=== PATIENT | male | born 1995 | race Caucasian/White ===

== ENCOUNTER 2017-06-11 01:49 | Emergency (ER) | payer BC ==
[2017-06-11 07:25] VITALS: BP 122/59
== END 2017-06-11 07:25 | disposition home or self-care (01) ==
LOC: ED 01:49
DX: S02.5XXA Fracture of tooth (traumatic), initial encounter for closed fracture (principal); S01.511A Laceration without foreign body of lip, initial encounter; X58.XXXA Exposure to other specified factors, initial encounter; Y93.89 Activity, other specified; Y99.8 Other external cause status; Y92.89 Other specified places as the place of occurrence of the external cause
CPT/HCPCS: J1885; J2001